=== PATIENT | male | born 1985 | race Caucasian/White ===

== ENCOUNTER 2016-09-09 23:07 | Emergency (ER) | payer MEDICARE, OTHER ==
[~2016-09-09] VITALS: Ht 175.3 cm; Wt 79.4 kg
[~2016-09-09 23:07] MED LIST: BACITRACIN1 GM MC; CIPROFLOXACIN500 M1 PO; DEBROX15 M1 OT; FLEXERIL10 MG PO; GENTAK5 ML OP; ILOTYCIN1 GM OD; PHENERGAN25 MG PO; VICODIN 5/1 TAB 5/50 PO
== END 2016-09-10 01:19 | disposition home or self-care (01) ==
LOC: CED 23:07
DX: J02.9 Acute pharyngitis, unspecified (principal); F17.210 Nicotine dependence, cigarettes, uncomplicated
CPT/HCPCS: 87651; 99283